=== PATIENT | male | born 1960 | race Caucasian/White ===

== ENCOUNTER 2017-10-19 13:24 | Inpatient (IN) | payer MEDICARE, OTHER, MEDICAID ==
[2017-10-19] MEDS ORDERED: LACTULOSE 30ML CUP PO (15:00)
[2017-10-19] MEDS ORDERED: ONDANSETRON 4 MG INJ IV (15:00)
[2017-10-19] MEDS: SOD CHLORIDE 0.45% 1,000 ML IV (15:18)
[2017-10-19] MEDS: PEG/ELECTROLYTES 4L BTL PO (16:59)
[2017-10-19] MEDS: clonAZEPAM 0.5 MG TAB PO (17:00)
[2017-10-19 18:54] LABS: ADD MAN DIFF? NO
[2017-10-19 18:56] LABS: BASOPHILS % 0.2 % (0.0-2.0); EOSINOPHILS # 0.1 10^3/ul (0.0-0.5); EOSINOPHILS % 1.4 % (0.0-7.0); HEMATOCRIT 39.7 % (42.0-52.0); HEMOGLOBIN 13.7 g/dl (14.0-18.0); LYMPHOCYTES # 0.9 10^3/ul (0.8-2.9); LYMPHOCYTES % 20.6 % (15.0-51.0); MEAN CORPUSCULAR HEMOGLOBIN 31.7 pg (29.0-33.0); MEAN CORPUSCULAR HGB CONC 34.5 g/dl (32.0-37.0); MEAN CORPUSCULAR VOLUME 91.9 fl (82.0-101.0); MEAN PLATELET VOLUME 9.6 fl (7.4-10.4); MONOCYTE # 0.3 10^3/ul (0.3-0.9); MONOCYTES % 6.5 % (0.0-11.0); NEUTROPHIL # 3.1 10^3/ul (1.6-7.5); NEUTROPHILS % 70.8 % (39.0-77.0); PLATELET COUNT 244 10^3/UL (140-415); RED BLOOD COUNT 4.32 10^6/ul (4.70-6.10); RED CELL DISTRIBUTION WIDTH 12.1 % (11.5-14.5)
[2017-10-19 18:56] LABS: WHITE BLOOD COUNT 4.3 10^3/ul (4.8-10.8)
[2017-10-19 19:57] LABS: INR 1.08; PROTIME 14.1 Sec (11.9-14.9); PT RATIO 1.1
[2017-10-19 19:58] LABS: PARTIAL THROMBOPLASTIN TIME 29.7 Sec (25.0-35.0)
[2017-10-19 20:02] LABS: ALANINE AMINOTRANSFERASE 34 IU/L (13-69); ALBUMIN/GLOBULIN RATIO 1.42; ALKALINE PHOSPHATASE 51 IU/L (42-121); ANION GAP 14 (8-16); ASPARTATE AMINO TRANSFERASE 17 IU/L (15-46); BILIRUBIN,INDIRECT 0.3 mg/dl (0-1.1); BILIRUBIN,TOTAL 0.3 mg/dl (0.2-1.3); BLOOD UREA NITROGEN 10 mg/dl (7-20); CALCIUM 9.2 mg/dl (8.4-10.2); CARBON DIOXIDE 30 mmol/L (21-31); CHLORIDE 101 mmol/L (97-110); CREATININE 0.75 mg/dl (0.61-1.24); GLUCOSE 92 mg/dl (70-220); POTASSIUM 3.7 mmol/L (3.5-5.1); SODIUM 141 mmol/L (135-144); TOTAL PROTEIN 6.8 g/dl (6.1-8.1)
[2017-10-19] MEDS: BACLOFEN 10 MG TAB PO (21:45)
[2017-10-19] MEDS: AMITRIPTYLINE 50 MG TAB PO (21:45)
[2017-10-19] MEDS: HYDROCODONE/APAP (10/325) TAB PO (22:09)
[2017-10-20] MEDS: PEG/ELECTROLYTES 4L BTL PO (00:53)
[2017-10-20] MEDS: clonAZEPAM 0.5 MG TAB PO ×7 (01:26→21:53)
[2017-10-20] MEDS: SOD CHLORIDE 0.45% 1,000 ML IV ×3 (03:48→17:43)
[2017-10-20] MEDS: HYDROCODONE/APAP (10/325) TAB PO ×2 (03:48→15:14)
[2017-10-20] MEDS: PANTOPRAZOLE (EC) 40 MG TAB PO (05:20)
[2017-10-20] MEDS: BACLOFEN 10 MG TAB PO ×4 (09:00→23:31)
[2017-10-20] MEDS: TESTOSTERONE 1% GEL 5 GM PACKET TOP (09:00)
[2017-10-20] MEDS: CALCITONIN SALMON 3.7 ML NASAL SPRAY NASAL (09:00)
[2017-10-20] MEDS: GABAPENTIN 100 MG CAP PO (09:00)
[2017-10-20] MEDS: morphine 2 MG INJ IV (09:47)
[2017-10-20] MEDS ORDERED: AMPICILLIN/SULB 3 GM/NS (PMX) 100 ML IVPB (10:00)
[2017-10-20] MEDS: SOD CHLORIDE 0.9% 1,000 ML IV (10:00)
[2017-10-20] MEDS: CHOLECALCIFEROL 2,000 UNIT CAP PO (12:25)
[2017-10-20] MEDS: OXYCODONE/ACETAMINOPHEN (10/325) TAB PO ×3 (12:51→21:29)
[2017-10-20] MEDS ORDERED: NITROGLYCERIN (SL) 0.4 MG TAB SL (13:00)
[2017-10-20 13:53] LABS: ADD MAN DIFF? NO
[2017-10-20 13:55] LABS: WHITE BLOOD COUNT 3.8 10^3/ul (4.8-10.8)
[2017-10-20 13:55] LABS: BASOPHILS % 0.3 % (0.0-2.0); EOSINOPHILS # 0.1 10^3/ul (0.0-0.5); EOSINOPHILS % 1.8 % (0.0-7.0); HEMATOCRIT 38.3 % (42.0-52.0); HEMOGLOBIN 13.2 g/dl (14.0-18.0); LYMPHOCYTES # 0.8 10^3/ul (0.8-2.9); LYMPHOCYTES % 21.5 % (15.0-51.0); MEAN CORPUSCULAR HEMOGLOBIN 31.9 pg (29.0-33.0); MEAN CORPUSCULAR HGB CONC 34.5 g/dl (32.0-37.0); MEAN CORPUSCULAR VOLUME 92.5 fl (82.0-101.0); MEAN PLATELET VOLUME 8.9 fl (7.4-10.4); MONOCYTE # 0.2 10^3/ul (0.3-0.9); NEUTROPHIL # 2.7 10^3/ul (1.6-7.5); NEUTROPHILS % 70.1 % (39.0-77.0); PLATELET COUNT 219 10^3/UL (140-415); RED BLOOD COUNT 4.14 10^6/ul (4.70-6.10); RED CELL DISTRIBUTION WIDTH 12.1 % (11.5-14.5)
[2017-10-20 14:23] LABS: ANION GAP 12 (8-16); BLOOD UREA NITROGEN 8 mg/dl (7-20); CALCIUM 8.7 mg/dl (8.4-10.2); CARBON DIOXIDE 28 mmol/L (21-31); CHLORIDE 105 mmol/L (97-110); CREATININE 0.72 mg/dl (0.61-1.24); GLUCOSE 88 mg/dl (70-220); POTASSIUM 3.7 mmol/L (3.5-5.1); SODIUM 141 mmol/L (135-144)
[2017-10-20] MEDS: TIZANIDINE 2 MG TAB PO (15:09)
[2017-10-20 18:42] LABS: TROPONIN-I < 0.012 ng/ml (0.00-0.12)
[2017-10-20] MEDS: MINERAL OIL 30ML CUP PO (21:22)
[2017-10-20] MEDS: AMITRIPTYLINE 25 MG TAB PO (23:31)
[2017-10-21 01:29] LABS: TROPONIN-I < 0.012 ng/ml (0.00-0.12)
[2017-10-21] MEDS: OXYCODONE/ACETAMINOPHEN (10/325) TAB PO ×4 (01:51→19:54)
[2017-10-21] MEDS: PANTOPRAZOLE (EC) 40 MG TAB PO (06:01)
[2017-10-21] MEDS: SOD CHLORIDE 0.45% 1,000 ML IV ×2 (06:04→20:20)
[2017-10-21 07:55] LABS: ADD MAN DIFF? NO
[2017-10-21 08:01] LABS: WHITE BLOOD COUNT 5.1 10^3/ul (4.8-10.8)
[2017-10-21 08:01] LABS: BASOPHILS % 0.4 % (0.0-2.0); EOSINOPHILS # 0.1 10^3/ul (0.0-0.5); HEMATOCRIT 34.4 % (42.0-52.0); LYMPHOCYTES # 1.3 10^3/ul (0.8-2.9); LYMPHOCYTES % 24.9 % (15.0-51.0); MEAN CORPUSCULAR HEMOGLOBIN 32.1 pg (29.0-33.0); MEAN CORPUSCULAR HGB CONC 34.9 g/dl (32.0-37.0); MEAN PLATELET VOLUME 9.5 fl (7.4-10.4); MONOCYTE # 0.4 10^3/ul (0.3-0.9); MONOCYTES % 7.5 % (0.0-11.0); NEUTROPHIL # 3.3 10^3/ul (1.6-7.5); PLATELET COUNT 204 10^3/UL (140-415); RED BLOOD COUNT 3.74 10^6/ul (4.70-6.10); RED CELL DISTRIBUTION WIDTH 12.3 % (11.5-14.5)
[2017-10-21 08:21] LABS: ANION GAP 12 (8-16); BLOOD UREA NITROGEN 7 mg/dl (7-20); CALCIUM 8.4 mg/dl (8.4-10.2); CARBON DIOXIDE 25 mmol/L (21-31); CHLORIDE 107 mmol/L (97-110); CREATININE 0.72 mg/dl (0.61-1.24); GLUCOSE 69 mg/dl (70-220); POTASSIUM 3.6 mmol/L (3.5-5.1); SODIUM 140 mmol/L (135-144)
[2017-10-21 08:22] LABS: CHOLESTEROL 99 mg/dl (100-200)
[2017-10-21 08:22] LABS: CHOL/HDL RATIO 2.6 RATIO; HDL CHOLESTEROL 38 mg/dl (28-71); LDL CHOLESTEROL,CALCULATED 47 mg/dl; TRIGLYCERIDES 70 mg/dl (0-149)
[2017-10-21 08:31] LABS: TROPONIN-I < 0.012 ng/ml (0.00-0.12)
[2017-10-21] MEDS: TESTOSTERONE 1% GEL 5 GM PACKET TOP (09:00)
[2017-10-21] MEDS: CALCITONIN SALMON 3.7 ML NASAL SPRAY NASAL (09:00)
[2017-10-21] MEDS: MINERAL OIL 30ML CUP PO ×3 (09:19→20:43)
[2017-10-21] MEDS: BACLOFEN 10 MG TAB PO ×3 (09:19→20:43)
[2017-10-21] MEDS: CHOLECALCIFEROL 2,000 UNIT CAP PO (09:21)
[2017-10-21] MEDS: clonAZEPAM 0.5 MG TAB PO ×3 (09:34→20:45)
[2017-10-21] MEDS: REGADENOSON 0.4 MG/5 ML SYG (12:20)
[2017-10-21] MEDS: GABAPENTIN 100 MG CAP PO (20:44)
[2017-10-21] MEDS: AMITRIPTYLINE 25 MG TAB PO (20:44)
[2017-10-22] MEDS: OXYCODONE/ACETAMINOPHEN (10/325) TAB PO ×5 (00:29→23:54)
[2017-10-22] MEDS: clonAZEPAM 0.5 MG TAB PO ×4 (00:57→20:31)
[2017-10-22] MEDS: SOD CHLORIDE 0.45% 1,000 ML IV ×2 (00:57→09:40)
[2017-10-22] MEDS: PANTOPRAZOLE (EC) 40 MG TAB PO (06:00)
[2017-10-22] MEDS: BACLOFEN 10 MG TAB PO ×3 (08:52→21:54)
[2017-10-22] MEDS: MINERAL OIL 30ML CUP PO ×3 (08:52→21:54)
[2017-10-22] MEDS: CHOLECALCIFEROL 2,000 UNIT CAP PO (08:52)
[2017-10-22] MEDS: CALCITONIN SALMON 3.7 ML NASAL SPRAY NASAL (09:00)
[2017-10-22] MEDS: TESTOSTERONE 1% GEL 5 GM PACKET TOP (09:00)
[2017-10-22] MEDS: PEG/ELECTROLYTES 4L BTL PO (15:01)
[2017-10-22] MEDS: D5W-0.45 NACL + KCL 20 MEQ 1,000 ML IV ×3 (15:02→23:17)
[2017-10-22] MEDS: TIZANIDINE 2 MG TAB PO (18:56)
[2017-10-22] MEDS: GABAPENTIN 100 MG CAP PO (23:08)
[2017-10-22] MEDS: AMITRIPTYLINE 25 MG TAB PO (23:08)
[2017-10-23] MEDS: clonAZEPAM 0.5 MG TAB PO ×3 (00:43→17:23)
[2017-10-23] MEDS: DEXTROSE IV ×3 (02:01→17:24)
[2017-10-23] MEDS: MULTIVITAMINS IV ×3 (02:01→17:24)
[2017-10-23] MEDS: POTASSIUM CHLORIDE IV ×3 (02:01→17:24)
[2017-10-23] MEDS: NACL IV ×3 (02:01→17:24)
[2017-10-23] MEDS: PANTOPRAZOLE (EC) 40 MG TAB PO (06:00)
[2017-10-23 06:21] LABS: ADD MAN DIFF? NO
[2017-10-23 06:25] LABS: WHITE BLOOD COUNT 4.4 10^3/ul (4.8-10.8)
[2017-10-23 06:25] LABS: BASOPHILS % 0.5 % (0.0-2.0); EOSINOPHILS # 0.1 10^3/ul (0.0-0.5); EOSINOPHILS % 2.9 % (0.0-7.0); HEMATOCRIT 37.8 % (42.0-52.0); HEMOGLOBIN 12.9 g/dl (14.0-18.0); LYMPHOCYTES # 1.4 10^3/ul (0.8-2.9); LYMPHOCYTES % 31.5 % (15.0-51.0); MEAN CORPUSCULAR HEMOGLOBIN 31.5 pg (29.0-33.0); MEAN CORPUSCULAR HGB CONC 34.1 g/dl (32.0-37.0); MEAN CORPUSCULAR VOLUME 92.4 fl (82.0-101.0); MEAN PLATELET VOLUME 9.7 fl (7.4-10.4); MONOCYTE # 0.4 10^3/ul (0.3-0.9); MONOCYTES % 8.8 % (0.0-11.0); NEUTROPHIL # 2.5 10^3/ul (1.6-7.5); NEUTROPHILS % 56.1 % (39.0-77.0); PLATELET COUNT 210 10^3/UL (140-415); RED BLOOD COUNT 4.09 10^6/ul (4.70-6.10); RED CELL DISTRIBUTION WIDTH 12.4 % (11.5-14.5)
[2017-10-23 06:51] LABS: ANION GAP 11 (8-16); BLOOD UREA NITROGEN 3 mg/dl (7-20); CALCIUM 8.8 mg/dl (8.4-10.2); CARBON DIOXIDE 28 mmol/L (21-31); CHLORIDE 108 mmol/L (97-110); CREATININE 0.78 mg/dl (0.61-1.24); GLUCOSE 107 mg/dl (70-220); POTASSIUM 4.3 mmol/L (3.5-5.1); SODIUM 143 mmol/L (135-144)
[2017-10-23] MEDS: TESTOSTERONE 1% GEL 5 GM PACKET TOP (09:00)
[2017-10-23] MEDS: MINERAL OIL 30ML CUP PO ×4 (09:00→23:28)
[2017-10-23] MEDS: CALCITONIN SALMON 3.7 ML NASAL SPRAY NASAL ×2 (09:00)
[2017-10-23] MEDS: BACLOFEN 10 MG TAB PO ×3 (09:00→23:28)
[2017-10-23] MEDS: PIPER-TAZO 3.375 GM IV (PMX) 50 ML IVPB ×4 (09:00→23:48)
[2017-10-23] MEDS: CHOLECALCIFEROL 2,000 UNIT CAP PO (09:00)
[2017-10-23] MEDS: OXYCODONE/ACETAMINOPHEN (10/325) TAB PO (16:50)
[2017-10-23] MEDS: PEG/ELECTROLYTES 4L BTL PO (16:55)
[2017-10-23] MEDS: TIZANIDINE 2 MG TAB PO (20:10)
[2017-10-23] MEDS: GABAPENTIN 100 MG CAP PO (23:28)
[2017-10-23] MEDS: AMITRIPTYLINE 25 MG TAB PO (23:28)
[2017-10-24] MEDS: MINERAL OIL 30ML CUP PO ×5 (00:23→18:03)
[2017-10-24] MEDS: clonAZEPAM 0.5 MG TAB PO ×3 (00:26→17:02)
[2017-10-24] MEDS: MULTIVITAMINS IV ×2 (01:35→17:11)
[2017-10-24] MEDS: DEXTROSE IV ×2 (01:35→17:11)
[2017-10-24] MEDS: POTASSIUM CHLORIDE IV ×2 (01:35→17:11)
[2017-10-24] MEDS: NACL IV ×2 (01:35→17:11)
[2017-10-24] MEDS: OXYCODONE/ACETAMINOPHEN (10/325) TAB PO ×4 (02:57→21:54)
[2017-10-24] MEDS: PIPER-TAZO 3.375 GM IV (PMX) 50 ML IVPB ×4 (07:01→23:52)
[2017-10-24] MEDS: PANTOPRAZOLE (EC) 40 MG TAB PO (08:00)
[2017-10-24] MEDS ORDERED: IOHEXOL 300MG/ML 150 ML BTL (08:20)
[2017-10-24] MEDS: BACLOFEN 10 MG TAB PO ×3 (09:00→21:38)
[2017-10-24] MEDS: TESTOSTERONE 1% GEL 5 GM PACKET TOP (09:00)
[2017-10-24] MEDS: CHOLECALCIFEROL 2,000 UNIT CAP PO (11:52)
[2017-10-24] MEDS: METOCLOPRAMIDE 10 MG TAB PO (12:00)
[2017-10-24 14:21] LABS: ADD MAN DIFF? NO
[2017-10-24 14:23] LABS: BASOPHILS % 0.3 % (0.0-2.0); EOSINOPHILS # 0.1 10^3/ul (0.0-0.5); EOSINOPHILS % 2.1 % (0.0-7.0); HEMATOCRIT 40.5 % (42.0-52.0); HEMOGLOBIN 13.6 g/dl (14.0-18.0); LYMPHOCYTES # 0.9 10^3/ul (0.8-2.9); LYMPHOCYTES % 22.1 % (15.0-51.0); MEAN CORPUSCULAR HEMOGLOBIN 31.6 pg (29.0-33.0); MEAN CORPUSCULAR HGB CONC 33.6 g/dl (32.0-37.0); MEAN CORPUSCULAR VOLUME 94.2 fl (82.0-101.0); MEAN PLATELET VOLUME 9.6 fl (7.4-10.4); MONOCYTE # 0.2 10^3/ul (0.3-0.9); MONOCYTES % 5.7 % (0.0-11.0); NEUTROPHIL # 2.7 10^3/ul (1.6-7.5); NEUTROPHILS % 69.5 % (39.0-77.0); PLATELET COUNT 223 10^3/UL (140-415); RED CELL DISTRIBUTION WIDTH 12.9 % (11.5-14.5)
[2017-10-24 14:23] LABS: WHITE BLOOD COUNT 3.8 10^3/ul (4.8-10.8)
[2017-10-24 14:46] LABS: ANION GAP 11 (8-16); BLOOD UREA NITROGEN < 2 mg/dl (7-20); CALCIUM 9.2 mg/dl (8.4-10.2); CARBON DIOXIDE 28 mmol/L (21-31); CHLORIDE 108 mmol/L (97-110); CREATININE 0.86 mg/dl (0.61-1.24); GLUCOSE 111 mg/dl (70-220); POTASSIUM 3.7 mmol/L (3.5-5.1); SODIUM 143 mmol/L (135-144)
[2017-10-24] MEDS: GABAPENTIN 100 MG CAP PO (21:38)
[2017-10-24] MEDS: AMITRIPTYLINE 25 MG TAB PO (21:38)
[2017-10-25] MEDS: clonAZEPAM 0.5 MG TAB PO ×4 (02:11→19:53)
[2017-10-25] MEDS: OXYCODONE/ACETAMINOPHEN (10/325) TAB PO ×4 (02:11→19:54)
[2017-10-25] MEDS: MINERAL OIL 30ML CUP PO ×5 (02:12→18:57)
[2017-10-25] MEDS: PANTOPRAZOLE (EC) 40 MG TAB PO (06:00)
[2017-10-25] MEDS: POTASSIUM CHLORIDE IV (06:07)
[2017-10-25] MEDS: NACL IV (06:07)
[2017-10-25] MEDS: PIPER-TAZO 3.375 GM IV (PMX) 50 ML IVPB ×4 (06:07→23:48)
[2017-10-25] MEDS: DEXTROSE IV (06:07)
[2017-10-25] MEDS: MULTIVITAMINS IV (06:07)
[2017-10-25] MEDS: TESTOSTERONE 1% GEL 5 GM PACKET TOP (09:00)
[2017-10-25] MEDS: CHOLECALCIFEROL 2,000 UNIT CAP PO (10:17)
[2017-10-25] MEDS: BACLOFEN 10 MG TAB PO ×3 (10:17→21:19)
[2017-10-25] MEDS: CALCITONIN SALMON 3.7 ML NASAL SPRAY NASAL (12:39)
[2017-10-25] MEDS ORDERED: TPN 1,000 ML IV (16:00)
[2017-10-25] MEDS: ACCU-CHEK XX ×2 (17:00→21:00)
[2017-10-25] MEDS: D5W-0.45 NACL + KCL 20 MEQ 1,000 ML IV (17:30)
[2017-10-25] MEDS: MINERAL OIL 133 ML ENEMA PR (21:00)
[2017-10-25] MEDS: GABAPENTIN 100 MG CAP PO (21:00)
[2017-10-25] MEDS: AMITRIPTYLINE 25 MG TAB PO (21:19)
[2017-10-25] MEDS: FAT EMULSION 20% 250 ML IV (21:27)
[2017-10-25] MEDS: TPN 1,000 ML IV (21:28)
[2017-10-26] MEDS: ACCU-CHEK XX ×6 (01:00→21:00)
[2017-10-26] MEDS: MINERAL OIL 30ML CUP PO ×5 (01:25→17:58)
[2017-10-26] MEDS: PIPER-TAZO 3.375 GM IV (PMX) 50 ML IVPB ×3 (05:30→17:58)
[2017-10-26] MEDS: TPN 1,000 ML IV ×2 (06:30→11:14)
[2017-10-26] MEDS: PANTOPRAZOLE (EC) 40 MG TAB PO (07:28)
[2017-10-26] MEDS: CALCITONIN SALMON 3.7 ML NASAL SPRAY NASAL (09:00)
[2017-10-26] MEDS: clonAZEPAM 0.5 MG TAB PO ×4 (09:01→23:00)
[2017-10-26] MEDS: CHOLECALCIFEROL 2,000 UNIT CAP PO (09:02)
[2017-10-26] MEDS: BACLOFEN 10 MG TAB PO ×3 (09:02→22:12)
[2017-10-26] MEDS: MINERAL OIL 133 ML ENEMA PR ×3 (09:02→22:57)
[2017-10-26] MEDS: OXYCODONE/ACETAMINOPHEN (10/325) TAB PO ×3 (09:02→18:39)
[2017-10-26 10:54] LABS: PHOSPHORUS 3.6 mg/dl (2.5-4.9)
[2017-10-26 10:54] LABS: MAGNESIUM 1.8 mg/dl (1.7-2.5); TRIGLYCERIDES 54 mg/dl (0-149)
[2017-10-26 10:55] LABS: ALANINE AMINOTRANSFERASE 37 IU/L (13-69); ALBUMIN 3.3 g/dl (3.3-4.9); ALBUMIN/GLOBULIN RATIO 1.32; ALKALINE PHOSPHATASE 35 IU/L (42-121); ANION GAP 14 (8-16); ASPARTATE AMINO TRANSFERASE 19 IU/L (15-46); BILIRUBIN,INDIRECT 0.4 mg/dl (0-1.1); BILIRUBIN,TOTAL 0.4 mg/dl (0.2-1.3); BLOOD UREA NITROGEN 9 mg/dl (7-20); CALCIUM 9.1 mg/dl (8.4-10.2); CARBON DIOXIDE 25 mmol/L (21-31); CHLORIDE 106 mmol/L (97-110); CREATININE 0.79 mg/dl (0.61-1.24); GLUCOSE 132 mg/dl (70-220); SODIUM 141 mmol/L (135-144); TOTAL PROTEIN 5.8 g/dl (6.1-8.1)
[2017-10-26 11:01] LABS: PREALBUMIN 17.7 mg/dl (17.6-36.0)
[2017-10-26] MEDS ORDERED: HYDROmorphONE 0.5 MG/0.5 ML SYG IV (12:30)
[2017-10-26] MEDS: PEG/ELECTROLYTES 4L BTL PO (14:50)
[2017-10-26] MEDS: FAT EMULSION 20% 250 ML IV (16:00)
[2017-10-26] MEDS: D5W-0.45 NACL + KCL 20 MEQ 1,000 ML IV ×2 (16:00→22:21)
[2017-10-26] MEDS: TESTOSTERONE 1% GEL 5 GM PACKET TOP (16:29)
[2017-10-26] MEDS: AMITRIPTYLINE 25 MG TAB PO (22:12)
[2017-10-26] MEDS: GABAPENTIN 100 MG CAP PO (22:13)
[2017-10-27] MEDS: PIPER-TAZO 3.375 GM IV (PMX) 50 ML IVPB ×5 (00:26→23:51)
[2017-10-27] MEDS: MINERAL OIL 30ML CUP PO ×3 (00:27→11:53)
[2017-10-27] MEDS: ACCU-CHEK XX ×5 (01:43→18:55)
[2017-10-27] MEDS: TPN 1,000 ML IV ×3 (01:44→20:00)
[2017-10-27] MEDS: OXYCODONE/ACETAMINOPHEN (10/325) TAB PO ×3 (03:07→20:40)
[2017-10-27] MEDS: PANTOPRAZOLE (EC) 40 MG TAB PO (05:08)
[2017-10-27] MEDS: TESTOSTERONE 1% GEL 5 GM PACKET TOP ×2 (09:00→11:51)
[2017-10-27] MEDS: BACLOFEN 10 MG TAB PO ×3 (09:00→23:50)
[2017-10-27] MEDS: CALCITONIN SALMON 3.7 ML NASAL SPRAY NASAL (09:00)
[2017-10-27] MEDS: CHOLECALCIFEROL 2,000 UNIT CAP PO (09:00)
[2017-10-27] MEDS: MINERAL OIL 133 ML ENEMA PR ×2 (10:36→11:54)
[2017-10-27 10:49] LABS: ADD MAN DIFF? NO
[2017-10-27 10:54] LABS: WHITE BLOOD COUNT 5.5 10^3/ul (4.8-10.8)
[2017-10-27 10:54] LABS: BASOPHILS % 0.2 % (0.0-2.0); EOSINOPHILS # 0.2 10^3/ul (0.0-0.5); HEMATOCRIT 38.2 % (42.0-52.0); HEMOGLOBIN 12.8 g/dl (14.0-18.0); LYMPHOCYTES # 0.9 10^3/ul (0.8-2.9); LYMPHOCYTES % 16.1 % (15.0-51.0); MEAN CORPUSCULAR HEMOGLOBIN 31.7 pg (29.0-33.0); MEAN CORPUSCULAR HGB CONC 33.5 g/dl (32.0-37.0); MEAN CORPUSCULAR VOLUME 94.6 fl (82.0-101.0); MEAN PLATELET VOLUME 9.8 fl (7.4-10.4); MONOCYTE # 0.4 10^3/ul (0.3-0.9); MONOCYTES % 7.8 % (0.0-11.0); NEUTROPHILS % 71.7 % (39.0-77.0); PLATELET COUNT 191 10^3/UL (140-415); RED BLOOD COUNT 4.04 10^6/ul (4.70-6.10); RED CELL DISTRIBUTION WIDTH 12.8 % (11.5-14.5)
[2017-10-27 11:21] LABS: PROTIME 14.4 Sec (11.9-14.9); PT RATIO 1.1
[2017-10-27 11:22] LABS: PARTIAL THROMBOPLASTIN TIME 28.5 Sec (25.0-35.0)
[2017-10-27 11:25] LABS: ANION GAP 11 (8-16); BLOOD UREA NITROGEN 13 mg/dl (7-20); CALCIUM 8.9 mg/dl (8.4-10.2); CARBON DIOXIDE 28 mmol/L (21-31); CHLORIDE 106 mmol/L (97-110); CREATININE 0.84 mg/dl (0.61-1.24); GLUCOSE 106 mg/dl (70-220); PHOSPHORUS 3.1 mg/dl (2.5-4.9); POTASSIUM 4.2 mmol/L (3.5-5.1); SODIUM 141 mmol/L (135-144)
[2017-10-27] MEDS: DIAZEPAM 5 MG/ML SYG IV (11:51)
[2017-10-27] MEDS: clonAZEPAM 0.5 MG TAB PO ×2 (15:56→20:38)
[2017-10-27] MEDS: FAT EMULSION 20% 250 ML IV (16:13)
[2017-10-27] MEDS: AMITRIPTYLINE 25 MG TAB PO (23:50)
[2017-10-27] MEDS: GABAPENTIN 100 MG CAP PO (23:50)
[2017-10-28] MEDS: OXYCODONE/ACETAMINOPHEN (10/325) TAB PO ×3 (03:09→20:26)
[2017-10-28] MEDS: TIZANIDINE 2 MG TAB PO (03:09)
[2017-10-28] MEDS: PANTOPRAZOLE (EC) 40 MG TAB PO ×2 (05:44→10:11)
[2017-10-28] MEDS: PIPER-TAZO 3.375 GM IV (PMX) 50 ML IVPB ×4 (05:44→23:56)
[2017-10-28] MEDS: D5W-0.45 NACL + KCL 20 MEQ 1,000 ML IV (05:50)
[2017-10-28] MEDS: TPN 1,000 ML IV ×2 (05:50→20:27)
[2017-10-28] MEDS: ACCU-CHEK XX ×4 (06:00→17:39)
[2017-10-28] MEDS: BACLOFEN 10 MG TAB PO ×4 (09:00→22:45)
[2017-10-28] MEDS: CHOLECALCIFEROL 2,000 UNIT CAP PO (10:11)
[2017-10-28] MEDS: TESTOSTERONE 1% GEL 5 GM PACKET TOP (10:12)
[2017-10-28] MEDS: CALCITONIN SALMON 3.7 ML NASAL SPRAY NASAL (10:15)
[2017-10-28 11:02] LABS: ANION GAP 14 (8-16); BLOOD UREA NITROGEN 13 mg/dl (7-20); CALCIUM 9.5 mg/dl (8.4-10.2); CARBON DIOXIDE 25 mmol/L (21-31); CHLORIDE 108 mmol/L (97-110); CREATININE 0.75 mg/dl (0.61-1.24); GLUCOSE 100 mg/dl (70-220); MAGNESIUM 1.9 mg/dl (1.7-2.5); POTASSIUM 4.2 mmol/L (3.5-5.1); SODIUM 143 mmol/L (135-144)
[2017-10-28 11:03] LABS: PHOSPHORUS 3.1 mg/dl (2.5-4.9)
[2017-10-28] MEDS: clonAZEPAM 0.5 MG TAB PO ×2 (11:23→20:26)
[2017-10-28] MEDS: FAT EMULSION 20% 250 ML IV (17:39)
[2017-10-28] MEDS: MINERAL OIL 30ML CUP PO (17:39)
[2017-10-28] MEDS: AMITRIPTYLINE 25 MG TAB PO (22:45)
[2017-10-28] MEDS: GABAPENTIN 100 MG CAP PO ×2 (23:57)
[2017-10-29] MEDS: ACCU-CHEK XX ×5 (00:03→23:39)
[2017-10-29] MEDS: MINERAL OIL 30ML CUP PO ×5 (05:06→23:34)
[2017-10-29] MEDS: PANTOPRAZOLE (EC) 40 MG TAB PO (05:06)
[2017-10-29] MEDS: PIPER-TAZO 3.375 GM IV (PMX) 50 ML IVPB ×2 (05:07→12:03)
[2017-10-29] MEDS: D5W-0.45 NACL + KCL 20 MEQ 1,000 ML IV ×2 (05:09→16:00)
[2017-10-29] MEDS: OXYCODONE/ACETAMINOPHEN (10/325) TAB PO ×4 (05:27→20:48)
[2017-10-29] MEDS: clonAZEPAM 0.5 MG TAB PO ×4 (05:42→20:53)
[2017-10-29] MEDS: BACLOFEN 10 MG TAB PO ×3 (09:00→20:48)
[2017-10-29] MEDS: CALCITONIN SALMON 3.7 ML NASAL SPRAY NASAL ×2 (09:00→09:31)
[2017-10-29] MEDS: CHOLECALCIFEROL 2,000 UNIT CAP PO (09:31)
[2017-10-29] MEDS: TESTOSTERONE 1% GEL 5 GM PACKET TOP (09:31)
[2017-10-29] MEDS: TPN 1,000 ML IV ×2 (10:06→22:07)
[2017-10-29] MEDS ORDERED: PIPER-TAZO 3.375 GM IV (PMX) 50 ML IV (13:30)
[2017-10-29 14:32] LABS: ADD MAN DIFF? NO
[2017-10-29 14:34] LABS: WHITE BLOOD COUNT 5.7 10^3/ul (4.8-10.8)
[2017-10-29 14:34] LABS: BASOPHILS % 0.4 % (0.0-2.0); EOSINOPHILS # 0.3 10^3/ul (0.0-0.5); EOSINOPHILS % 4.4 % (0.0-7.0); HEMATOCRIT 38.3 % (42.0-52.0); HEMOGLOBIN 13.1 g/dl (14.0-18.0); LYMPHOCYTES # 0.8 10^3/ul (0.8-2.9); LYMPHOCYTES % 13.3 % (15.0-51.0); MEAN CORPUSCULAR HEMOGLOBIN 32.3 pg (29.0-33.0); MEAN CORPUSCULAR HGB CONC 34.2 g/dl (32.0-37.0); MEAN CORPUSCULAR VOLUME 94.3 fl (82.0-101.0); MEAN PLATELET VOLUME 10.4 fl (7.4-10.4); MONOCYTE # 0.3 10^3/ul (0.3-0.9); MONOCYTES % 5.8 % (0.0-11.0); NEUTROPHIL # 4.3 10^3/ul (1.6-7.5); NEUTROPHILS % 75.9 % (39.0-77.0); PLATELET COUNT 196 10^3/UL (140-415); RED BLOOD COUNT 4.06 10^6/ul (4.70-6.10); RED CELL DISTRIBUTION WIDTH 12.6 % (11.5-14.5)
[2017-10-29 14:51] LABS: ANION GAP 13 (8-16); BLOOD UREA NITROGEN 13 mg/dl (7-20); CALCIUM 9.3 mg/dl (8.4-10.2); CARBON DIOXIDE 23 mmol/L (21-31); CHLORIDE 109 mmol/L (97-110); CREATININE 0.74 mg/dl (0.61-1.24); GLUCOSE 124 mg/dl (70-220); POTASSIUM 3.4 mmol/L (3.5-5.1); SODIUM 142 mmol/L (135-144)
[2017-10-29] MEDS: FAT EMULSION 20% 250 ML IV (17:08)
[2017-10-29] MEDS: PEG/ELECTROLYTES 4L BTL PO (18:03)
[2017-10-29] MEDS: AMITRIPTYLINE 25 MG TAB PO (20:49)
[2017-10-29] MEDS: GABAPENTIN 100 MG CAP PO (20:49)
[2017-10-30] MEDS ORDERED: PEG/ELECTROLYTES 4L BTL PO
[2017-10-30] MEDS: clonAZEPAM 0.5 MG TAB PO (01:10)
[2017-10-30] MEDS: OXYCODONE/ACETAMINOPHEN (10/325) TAB PO ×2 (01:10→09:58)
[2017-10-30] MEDS: D5W-0.45 NACL + KCL 20 MEQ 1,000 ML IV ×2 (03:08→20:22)
[2017-10-30] MEDS: PANTOPRAZOLE (EC) 40 MG TAB PO (05:49)
[2017-10-30] MEDS: ACCU-CHEK XX ×3 (06:19→18:00)
[2017-10-30] MEDS: TESTOSTERONE 1% GEL 5 GM PACKET TOP (09:57)
[2017-10-30] MEDS: CHOLECALCIFEROL 2,000 UNIT CAP PO (09:57)
[2017-10-30] MEDS: BACLOFEN 10 MG TAB PO ×3 (09:57→21:00)
[2017-10-30] MEDS: DIAZEPAM 5 MG/ML SYG IV ×2 (09:58→21:54)
[2017-10-30] MEDS: CALCITONIN SALMON 3.7 ML NASAL SPRAY NASAL (09:59)
[2017-10-30] MEDS: TPN 1,000 ML IV ×2 (10:49→21:42)
[2017-10-30] MEDS ORDERED: PIPER-TAZO 3.375 GM IV (PMX) 50 ML IV (14:00)
[2017-10-30] MEDS ORDERED: LIDOCAINE 2% (SDV) 5 ML INJ (15:26)
[2017-10-30] MEDS ORDERED: GLYCOPYRROLATE 0.4 MG INJ (15:26)
[2017-10-30] MEDS ORDERED: SUCCINYLCHOLINE CHLORIDE 100 MG/5 ML SYG IV (15:26)
[2017-10-30] MEDS ORDERED: ROCURONIUM 50 MG INJ (15:26)
[2017-10-30] MEDS ORDERED: PROPOFOL 20 ML (15:26)
[2017-10-30] MEDS ORDERED: NEOSTIGMINE 3 MG/3 ML SYRINGE (15:26)
[2017-10-30] MEDS ORDERED: MIDAZOLAM 1 MG/ML 2 ML INJ (15:30)
[2017-10-30] MEDS ORDERED: D5W-0.45 NACL + KCL 20 MEQ 1,000 ML IV (17:02)
[2017-10-30] MEDS ORDERED: ONDANSETRON 4 MG INJ IV ×2 (17:30→18:00)
[2017-10-30] MEDS ORDERED: ACETAMINOPHEN 1000MG/100ML IV 100 ML IVPB (17:30)
[2017-10-30] MEDS ORDERED: ONDANSETRON 4 MG INJ (17:50)
[2017-10-30] MEDS ORDERED: OXYCODONE/ACETAMINOPHEN (5/325) TAB PO ×2 (18:00)
[2017-10-30] MEDS ORDERED: EPHEDrine SULFATE 50 MG/5 ML SYG IV (18:00)
[2017-10-30] MEDS ORDERED: HYDROmorphONE (0.2 MG/ML) 10ML SYG IV ×3 (18:00)
[2017-10-30] MEDS ORDERED: hydrALAzine 20 MG INJ IV (18:00)
[2017-10-30] MEDS ORDERED: METOCLOPRAMIDE 10 MG INJ IV (18:00)
[2017-10-30] MEDS ORDERED: MEPERIDINE 25 MG INJ IV (18:00)
[2017-10-30] MEDS ORDERED: MIDAZOLAM 1 MG/ML 2 ML INJ IV (18:00)
[2017-10-30] MEDS ORDERED: LABETALOL HCL 20MG INJ IV (18:00)
[2017-10-30] MEDS ORDERED: FENTAnyl 50 MCG/ML VIAL IV ×3 (18:00)
[2017-10-30] MEDS ORDERED: FENTAnyl 50 MCG/ML VIAL (18:15)
[2017-10-30] MEDS: morphine 1 MG/ML 30 ML (PCA) IV (18:56)
[2017-10-30] MEDS: AMITRIPTYLINE 25 MG TAB PO (21:00)
[2017-10-30] MEDS: GABAPENTIN 100 MG CAP PO (21:00)
[2017-10-30] MEDS: FAT EMULSION 20% 250 ML IV ×2 (23:18→23:19)
[2017-10-31] MEDS: morphine 1 MG/ML 30 ML (PCA) IV ×3 (00:38→13:58)
[2017-10-31] MEDS: ACCU-CHEK XX ×4 (00:48→18:00)
[2017-10-31] MEDS: PANTOPRAZOLE (EC) 40 MG TAB PO (05:52)
[2017-10-31] MEDS: DIAZEPAM 5 MG/ML SYG IV (06:21)
[2017-10-31] MEDS ORDERED: VITAMIN A & D 5 GM OINT PACKET TOP (06:33)
[2017-10-31] MEDS: TESTOSTERONE 1% GEL 5 GM PACKET TOP ×2 (09:00)
[2017-10-31] MEDS: CHOLECALCIFEROL 2,000 UNIT CAP PO (09:00)
[2017-10-31] MEDS: BACLOFEN 10 MG TAB PO ×4 (09:00→23:16)
[2017-10-31] MEDS: CALCITONIN SALMON 3.7 ML NASAL SPRAY NASAL (09:00)
[2017-10-31 09:35] LABS: ADD MAN DIFF? NO
[2017-10-31 09:40] LABS: BASOPHILS % 0.2 % (0.0-2.0); EOSINOPHILS # 0.2 10^3/ul (0.0-0.5); EOSINOPHILS % 1.7 % (0.0-7.0); HEMATOCRIT 41.4 % (42.0-52.0); HEMOGLOBIN 13.8 g/dl (14.0-18.0); LYMPHOCYTES % 10.5 % (15.0-51.0); MEAN CORPUSCULAR HEMOGLOBIN 31.6 pg (29.0-33.0); MEAN CORPUSCULAR HGB CONC 33.3 g/dl (32.0-37.0); MEAN CORPUSCULAR VOLUME 94.7 fl (82.0-101.0); MEAN PLATELET VOLUME 10.5 fl (7.4-10.4); MONOCYTE # 0.9 10^3/ul (0.3-0.9); MONOCYTES % 9.1 % (0.0-11.0); NEUTROPHIL # 7.3 10^3/ul (1.6-7.5); NEUTROPHILS % 78.1 % (39.0-77.0); PLATELET COUNT 216 10^3/UL (140-415); RED BLOOD COUNT 4.37 10^6/ul (4.70-6.10); RED CELL DISTRIBUTION WIDTH 12.6 % (11.5-14.5)
[2017-10-31 09:40] LABS: WHITE BLOOD COUNT 9.4 10^3/ul (4.8-10.8)
[2017-10-31 10:01] LABS: ANION GAP 12 (8-16); BLOOD UREA NITROGEN 13 mg/dl (7-20); CALCIUM 9.2 mg/dl (8.4-10.2); CARBON DIOXIDE 30 mmol/L (21-31); CHLORIDE 102 mmol/L (97-110); CREATININE 0.64 mg/dl (0.61-1.24); GLUCOSE 102 mg/dl (70-220); MAGNESIUM 1.8 mg/dl (1.7-2.5); PHOSPHORUS 3.3 mg/dl (2.5-4.9); SODIUM 140 mmol/L (135-144)
[2017-10-31 10:26] LABS: INR 1.04; PROTIME 13.7 Sec (11.9-14.9); PT RATIO 1.1
[2017-10-31 10:27] LABS: PARTIAL THROMBOPLASTIN TIME 28.9 Sec (25.0-35.0)
[2017-10-31] MEDS: TPN 1,000 ML IV ×2 (11:21→23:14)
[2017-10-31] MEDS: KETOROLAC 30 MG INJ IV ×3 (12:08→23:30)
[2017-10-31] MEDS: clonAZEPAM 0.5 MG TAB PO ×2 (14:14→20:45)
[2017-10-31] MEDS: D5W-0.45 NACL + KCL 20 MEQ 1,000 ML IV (16:18)
[2017-10-31] MEDS: FAT EMULSION 20% 250 ML IV (16:19)
[2017-10-31] MEDS: AMITRIPTYLINE 25 MG TAB PO (20:45)
[2017-10-31] MEDS: GABAPENTIN 100 MG CAP PO (21:00)
[2017-11-01] MEDS: ACCU-CHEK XX ×4 (00:45→18:00)
[2017-11-01] MEDS: morphine 1 MG/ML 30 ML (PCA) IV ×3 (01:31→21:43)
[2017-11-01] MEDS: clonAZEPAM 0.5 MG TAB PO ×2 (04:24→20:47)
[2017-11-01] MEDS: PANTOPRAZOLE (EC) 40 MG TAB PO (06:14)
[2017-11-01] MEDS: KETOROLAC 30 MG INJ IV ×4 (06:14→22:49)
[2017-11-01] MEDS: CALCITONIN SALMON 3.7 ML NASAL SPRAY NASAL (09:00)
[2017-11-01] MEDS: TESTOSTERONE 1% GEL 5 GM PACKET TOP (09:00)
[2017-11-01] MEDS: BACLOFEN 10 MG TAB PO ×3 (09:00→21:00)
[2017-11-01 11:31] LABS: ADD MAN DIFF? NO
[2017-11-01 11:35] LABS: WHITE BLOOD COUNT 7.1 10^3/ul (4.8-10.8)
[2017-11-01 11:35] LABS: BASOPHILS % 0.6 % (0.0-2.0); EOSINOPHILS # 0.3 10^3/ul (0.0-0.5); EOSINOPHILS % 3.5 % (0.0-7.0); HEMATOCRIT 39.7 % (42.0-52.0); HEMOGLOBIN 12.9 g/dl (14.0-18.0); LYMPHOCYTES # 1.3 10^3/ul (0.8-2.9); LYMPHOCYTES % 18.1 % (15.0-51.0); MEAN CORPUSCULAR HEMOGLOBIN 31.7 pg (29.0-33.0); MEAN CORPUSCULAR HGB CONC 32.5 g/dl (32.0-37.0); MEAN CORPUSCULAR VOLUME 97.5 fl (82.0-101.0); MEAN PLATELET VOLUME 10.4 fl (7.4-10.4); MONOCYTE # 0.9 10^3/ul (0.3-0.9); MONOCYTES % 12.9 % (0.0-11.0); NEUTROPHIL # 4.6 10^3/ul (1.6-7.5); NEUTROPHILS % 64.8 % (39.0-77.0); PLATELET COUNT 215 10^3/UL (140-415); RED BLOOD COUNT 4.07 10^6/ul (4.70-6.10); RED CELL DISTRIBUTION WIDTH 12.7 % (11.5-14.5)
[2017-11-01 11:57] LABS: INR 1.08; PROTIME 14.1 Sec (11.9-14.9); PT RATIO 1.1
[2017-11-01 11:58] LABS: PARTIAL THROMBOPLASTIN TIME 31.8 Sec (25.0-35.0)
[2017-11-01 12:03] LABS: ANION GAP 12 (8-16); BLOOD UREA NITROGEN 15 mg/dl (7-20); CALCIUM 9.3 mg/dl (8.4-10.2); CARBON DIOXIDE 28 mmol/L (21-31); CHLORIDE 103 mmol/L (97-110); CREATININE 0.73 mg/dl (0.61-1.24); GLUCOSE 94 mg/dl (70-220); MAGNESIUM 2.1 mg/dl (1.7-2.5); PHOSPHORUS 3.8 mg/dl (2.5-4.9); POTASSIUM 4.2 mmol/L (3.5-5.1); SODIUM 139 mmol/L (135-144)
[2017-11-01] MEDS: TPN 1,000 ML IV (12:28)
[2017-11-01] MEDS: CHOLECALCIFEROL 2,000 UNIT CAP PO (12:33)
[2017-11-01] MEDS: D5W-0.45 NACL + KCL 20 MEQ 1,000 ML IV (16:00)
[2017-11-01] MEDS: FAT EMULSION 20% 250 ML IV (16:01)
[2017-11-01] MEDS: AMITRIPTYLINE 25 MG TAB PO (20:46)
[2017-11-01] MEDS: GABAPENTIN 100 MG CAP PO (21:00)
[2017-11-01] MEDS: PIPER-TAZO 3.375 GM IV (PMX) 50 ML IVPB (22:47)
[2017-11-02] MEDS: TPN 1,000 ML IV ×3 (01:03→17:14)
[2017-11-02] MEDS: ACCU-CHEK XX ×4 (06:00→17:56)
[2017-11-02] MEDS: PIPER-TAZO 3.375 GM IV (PMX) 50 ML IVPB ×3 (06:12→21:44)
[2017-11-02] MEDS: PANTOPRAZOLE 40 MG INJ IV (06:12)
[2017-11-02] MEDS: KETOROLAC 30 MG INJ IV ×3 (06:12→17:41)
[2017-11-02] MEDS: BACLOFEN 10 MG TAB PO ×3 (09:46→20:23)
[2017-11-02] MEDS: CHOLECALCIFEROL 2,000 UNIT CAP PO (09:46)
[2017-11-02] MEDS: CALCITONIN SALMON 3.7 ML NASAL SPRAY NASAL (09:46)
[2017-11-02 11:22] LABS: ADD MAN DIFF? NO
[2017-11-02] MEDS: clonAZEPAM 0.5 MG TAB PO ×3 (11:30→20:33)
[2017-11-02] MEDS: TESTOSTERONE 1% GEL 5 GM PACKET TOP (11:35)
[2017-11-02 11:36] LABS: BASOPHILS % 0.6 % (0.0-2.0); EOSINOPHILS # 0.3 10^3/ul (0.0-0.5); EOSINOPHILS % 5.9 % (0.0-7.0); HEMATOCRIT 37.2 % (42.0-52.0); HEMOGLOBIN 12.3 g/dl (14.0-18.0); LYMPHOCYTES # 0.9 10^3/ul (0.8-2.9); LYMPHOCYTES % 18.7 % (15.0-51.0); MEAN CORPUSCULAR HEMOGLOBIN 32.1 pg (29.0-33.0); MEAN CORPUSCULAR HGB CONC 33.1 g/dl (32.0-37.0); MEAN CORPUSCULAR VOLUME 97.1 fl (82.0-101.0); MEAN PLATELET VOLUME 10.5 fl (7.4-10.4); MONOCYTE # 0.6 10^3/ul (0.3-0.9); MONOCYTES % 12.2 % (0.0-11.0); NEUTROPHIL # 3.1 10^3/ul (1.6-7.5); NEUTROPHILS % 62.4 % (39.0-77.0); PLATELET COUNT 183 10^3/UL (140-415); RED BLOOD COUNT 3.83 10^6/ul (4.70-6.10); RED CELL DISTRIBUTION WIDTH 12.4 % (11.5-14.5)
[2017-11-02 11:36] LABS: WHITE BLOOD COUNT 4.9 10^3/ul (4.8-10.8)
[2017-11-02 11:50] LABS: INR 1.02; PROTIME 13.5 Sec (11.9-14.9); PT RATIO 1.1
[2017-11-02 11:54] LABS: TRIGLYCERIDES 70 mg/dl (0-149)
[2017-11-02 11:55] LABS: ANION GAP 12 (8-16); BLOOD UREA NITROGEN 17 mg/dl (7-20); CALCIUM 9.1 mg/dl (8.4-10.2); CARBON DIOXIDE 29 mmol/L (21-31); CHLORIDE 103 mmol/L (97-110); CREATININE 0.74 mg/dl (0.61-1.24); GLUCOSE 96 mg/dl (70-220); PHOSPHORUS 4.5 mg/dl (2.5-4.9); POTASSIUM 4.2 mmol/L (3.5-5.1); SODIUM 140 mmol/L (135-144)
[2017-11-02 12:00] LABS: PREALBUMIN 15.3 mg/dl (17.6-36.0)
[2017-11-02] MEDS: D5W-0.45 NACL + KCL 20 MEQ 1,000 ML IV ×2 (12:12→17:41)
[2017-11-02 12:30] LABS: PARTIAL THROMBOPLASTIN TIME 32.4 Sec (25.0-35.0)
[2017-11-02] MEDS: morphine 1 MG/ML 30 ML (PCA) IV (12:55)
[2017-11-02] MEDS: FAT EMULSION 20% 250 ML IV (17:14)
[2017-11-02] MEDS: AMITRIPTYLINE 25 MG TAB PO (20:23)
[2017-11-02] MEDS: GABAPENTIN 100 MG CAP PO (21:45)
[2017-11-03] MEDS: KETOROLAC 30 MG INJ IV ×2 (00:51→05:41)
[2017-11-03] MEDS: clonAZEPAM 0.5 MG TAB PO ×5 (00:52→22:16)
[2017-11-03] MEDS: TPN 1,000 ML IV ×3 (05:40→18:53)
[2017-11-03] MEDS: PIPER-TAZO 3.375 GM IV (PMX) 50 ML IVPB ×3 (05:42→22:17)
[2017-11-03] MEDS: ACCU-CHEK XX ×4 (05:42→17:20)
[2017-11-03] MEDS: PANTOPRAZOLE 40 MG INJ IV (05:42)
[2017-11-03] MEDS: TESTOSTERONE 1% GEL 5 GM PACKET TOP ×2 (09:00→15:16)
[2017-11-03] MEDS: D5W-0.45 NACL + KCL 20 MEQ 1,000 ML IV ×2 (10:26→20:09)
[2017-11-03] MEDS: BACLOFEN 10 MG TAB PO ×4 (10:32→22:16)
[2017-11-03] MEDS: CHOLECALCIFEROL 2,000 UNIT CAP PO (10:32)
[2017-11-03] MEDS: CALCITONIN SALMON 3.7 ML NASAL SPRAY NASAL (10:33)
[2017-11-03 12:05] LABS: ADD MAN DIFF? NO
[2017-11-03 12:16] LABS: WHITE BLOOD COUNT 4.2 10^3/ul (4.8-10.8)
[2017-11-03 12:16] LABS: EOSINOPHILS # 0.3 10^3/ul (0.0-0.5); EOSINOPHILS % 6.2 % (0.0-7.0); HEMATOCRIT 34.4 % (42.0-52.0); HEMOGLOBIN 11.4 g/dl (14.0-18.0); LYMPHOCYTES # 0.6 10^3/ul (0.8-2.9); LYMPHOCYTES % 15.1 % (15.0-51.0); MEAN CORPUSCULAR HEMOGLOBIN 31.8 pg (29.0-33.0); MEAN CORPUSCULAR HGB CONC 33.1 g/dl (32.0-37.0); MEAN CORPUSCULAR VOLUME 96.1 fl (82.0-101.0); MEAN PLATELET VOLUME 10.5 fl (7.4-10.4); MONOCYTE # 0.4 10^3/ul (0.3-0.9); MONOCYTES % 9.1 % (0.0-11.0); NEUTROPHIL # 2.9 10^3/ul (1.6-7.5); NEUTROPHILS % 68.4 % (39.0-77.0); PLATELET COUNT 198 10^3/UL (140-415); RED BLOOD COUNT 3.58 10^6/ul (4.70-6.10); RED CELL DISTRIBUTION WIDTH 12.2 % (11.5-14.5)
[2017-11-03 12:28] LABS: ANION GAP 10 (8-16); BLOOD UREA NITROGEN 16 mg/dl (7-20); CALCIUM 8.7 mg/dl (8.4-10.2); CARBON DIOXIDE 27 mmol/L (21-31); CHLORIDE 108 mmol/L (97-110); CREATININE 0.77 mg/dl (0.61-1.24); GLUCOSE 87 mg/dl (70-220); PHOSPHORUS 3.1 mg/dl (2.5-4.9); SODIUM 141 mmol/L (135-144)
[2017-11-03] MEDS: morphine 1 MG/ML 30 ML (PCA) IV ×2 (13:31→22:07)
[2017-11-03] MEDS: FAT EMULSION 20% 250 ML IV (15:35)
[2017-11-03] MEDS: AMITRIPTYLINE 25 MG TAB PO (22:16)
[2017-11-03] MEDS: GABAPENTIN 100 MG CAP PO ×2 (22:23→23:34)
[2017-11-04] MEDS: ACETAMINOPHEN 325 MG TAB PO (02:30)
[2017-11-04] MEDS: clonAZEPAM 0.5 MG TAB PO ×4 (02:36→22:32)
[2017-11-04] MEDS: TPN 1,000 ML IV ×3 (03:00→11:00)
[2017-11-04] MEDS: ACCU-CHEK XX ×5 (06:00→23:48)
[2017-11-04] MEDS: PIPER-TAZO 3.375 GM IV (PMX) 50 ML IVPB ×3 (07:09→21:39)
[2017-11-04] MEDS: PANTOPRAZOLE 40 MG INJ IV (07:09)
[2017-11-04] MEDS: BACLOFEN 10 MG TAB PO ×3 (09:29→20:51)
[2017-11-04] MEDS: CHOLECALCIFEROL 2,000 UNIT CAP PO (09:30)
[2017-11-04] MEDS: CALCITONIN SALMON 3.7 ML NASAL SPRAY NASAL (09:39)
[2017-11-04] MEDS ORDERED: morphine 4 MG/ML VIAL IV (10:30)
[2017-11-04 10:57] LABS: ADD MAN DIFF? NO
[2017-11-04] MEDS: TESTOSTERONE 1% GEL 5 GM PACKET TOP (11:00)
[2017-11-04 11:16] LABS: WHITE BLOOD COUNT 6.4 10^3/ul (4.8-10.8)
[2017-11-04 11:16] LABS: BASOPHILS % 0.5 % (0.0-2.0); EOSINOPHILS # 0.3 10^3/ul (0.0-0.5); HEMATOCRIT 35.6 % (42.0-52.0); HEMOGLOBIN 11.7 g/dl (14.0-18.0); LYMPHOCYTES # 0.6 10^3/ul (0.8-2.9); LYMPHOCYTES % 9.8 % (15.0-51.0); MEAN CORPUSCULAR HEMOGLOBIN 31.5 pg (29.0-33.0); MEAN CORPUSCULAR HGB CONC 32.9 g/dl (32.0-37.0); MEAN CORPUSCULAR VOLUME 95.7 fl (82.0-101.0); MEAN PLATELET VOLUME 10.4 fl (7.4-10.4); MONOCYTE # 0.3 10^3/ul (0.3-0.9); NEUTROPHIL # 5.2 10^3/ul (1.6-7.5); NEUTROPHILS % 80.4 % (39.0-77.0); PLATELET COUNT 214 10^3/UL (140-415); RED BLOOD COUNT 3.72 10^6/ul (4.70-6.10); RED CELL DISTRIBUTION WIDTH 12.1 % (11.5-14.5)
[2017-11-04 11:17] LABS: ANION GAP 13 (8-16); BLOOD UREA NITROGEN 15 mg/dl (7-20); CALCIUM 9.1 mg/dl (8.4-10.2); CARBON DIOXIDE 25 mmol/L (21-31); CHLORIDE 107 mmol/L (97-110); CREATININE 0.78 mg/dl (0.61-1.24); GLUCOSE 151 mg/dl (70-220); POTASSIUM 3.9 mmol/L (3.5-5.1); SODIUM 141 mmol/L (135-144)
[2017-11-04] MEDS: OXYCODONE/ACETAMINOPHEN (10/325) TAB PO ×2 (15:30→22:15)
[2017-11-04] MEDS: HYDROmorphONE 0.5 MG/0.5 ML SYG IV (18:12)
[2017-11-04] MEDS: AMITRIPTYLINE 25 MG TAB PO (20:51)
[2017-11-04] MEDS: GABAPENTIN 100 MG CAP PO (23:00)
[2017-11-05] MEDS: ACCU-CHEK XX ×2 (06:36→12:44)
[2017-11-05] MEDS: OXYCODONE/ACETAMINOPHEN (10/325) TAB PO ×4 (06:36→21:57)
[2017-11-05] MEDS: PANTOPRAZOLE 40 MG INJ IV (06:43)
[2017-11-05] MEDS: PIPER-TAZO 3.375 GM IV (PMX) 50 ML IVPB ×3 (06:43→21:49)
[2017-11-05] MEDS: clonAZEPAM 0.5 MG TAB PO ×4 (06:44→21:56)
[2017-11-05 08:54] LABS: ADD MAN DIFF? NO
[2017-11-05 08:56] LABS: WHITE BLOOD COUNT 4.9 10^3/ul (4.8-10.8)
[2017-11-05 08:56] LABS: BASOPHILS % 0.8 % (0.0-2.0); EOSINOPHILS # 0.3 10^3/ul (0.0-0.5); EOSINOPHILS % 5.5 % (0.0-7.0); HEMATOCRIT 34.7 % (42.0-52.0); HEMOGLOBIN 11.7 g/dl (14.0-18.0); LYMPHOCYTES # 0.7 10^3/ul (0.8-2.9); LYMPHOCYTES % 14.8 % (15.0-51.0); MEAN CORPUSCULAR HEMOGLOBIN 31.6 pg (29.0-33.0); MEAN CORPUSCULAR HGB CONC 33.7 g/dl (32.0-37.0); MEAN CORPUSCULAR VOLUME 93.8 fl (82.0-101.0); MEAN PLATELET VOLUME 10.3 fl (7.4-10.4); MONOCYTE # 0.4 10^3/ul (0.3-0.9); MONOCYTES % 8.5 % (0.0-11.0); NEUTROPHIL # 3.5 10^3/ul (1.6-7.5); NEUTROPHILS % 70.2 % (39.0-77.0); PLATELET COUNT 204 10^3/UL (140-415); RED CELL DISTRIBUTION WIDTH 12.5 % (11.5-14.5)
[2017-11-05] MEDS: BACLOFEN 10 MG TAB PO ×3 (09:05→21:49)
[2017-11-05] MEDS: CHOLECALCIFEROL 2,000 UNIT CAP PO (09:05)
[2017-11-05] MEDS: CALCITONIN SALMON 3.7 ML NASAL SPRAY NASAL (09:05)
[2017-11-05] MEDS: TESTOSTERONE 1% GEL 5 GM PACKET TOP (09:06)
[2017-11-05] MEDS: TPN 1,000 ML IV (09:19)
[2017-11-05 09:28] LABS: ANION GAP 14 (8-16); BLOOD UREA NITROGEN 15 mg/dl (7-20); CALCIUM 9.2 mg/dl (8.4-10.2); CARBON DIOXIDE 26 mmol/L (21-31); CHLORIDE 106 mmol/L (97-110); CREATININE 0.86 mg/dl (0.61-1.24); GLUCOSE 102 mg/dl (70-220); POTASSIUM 4.3 mmol/L (3.5-5.1); SODIUM 142 mmol/L (135-144)
[2017-11-05] MEDS: AMITRIPTYLINE 25 MG TAB PO (21:48)
[2017-11-06] MEDS: PANTOPRAZOLE 40 MG INJ IV (05:41)
[2017-11-06] MEDS: clonAZEPAM 0.5 MG TAB PO ×3 (05:41→20:56)
[2017-11-06] MEDS: OXYCODONE/ACETAMINOPHEN (10/325) TAB PO ×4 (05:42→20:56)
[2017-11-06] MEDS: PIPER-TAZO 3.375 GM IV (PMX) 50 ML IVPB ×3 (05:42→21:55)
[2017-11-06] MEDS: CHOLECALCIFEROL 2,000 UNIT CAP PO (09:15)
[2017-11-06] MEDS: BACLOFEN 10 MG TAB PO ×3 (09:15→21:55)
[2017-11-06] MEDS: TESTOSTERONE 1% GEL 5 GM PACKET TOP (09:16)
[2017-11-06] MEDS: CALCITONIN SALMON 3.7 ML NASAL SPRAY NASAL (09:16)
[2017-11-06 10:36] LABS: ADD MAN DIFF? NO
[2017-11-06 10:40] LABS: WHITE BLOOD COUNT 5.3 10^3/ul (4.8-10.8)
[2017-11-06 10:40] LABS: BASOPHILS % 0.8 % (0.0-2.0); EOSINOPHILS # 0.3 10^3/ul (0.0-0.5); EOSINOPHILS % 5.1 % (0.0-7.0); HEMATOCRIT 39.3 % (42.0-52.0); HEMOGLOBIN 12.7 g/dl (14.0-18.0); LYMPHOCYTES # 0.9 10^3/ul (0.8-2.9); LYMPHOCYTES % 16.4 % (15.0-51.0); MEAN CORPUSCULAR HGB CONC 32.3 g/dl (32.0-37.0); MEAN CORPUSCULAR VOLUME 95.9 fl (82.0-101.0); MEAN PLATELET VOLUME 10.3 fl (7.4-10.4); MONOCYTE # 0.2 10^3/ul (0.3-0.9); MONOCYTES % 4.6 % (0.0-11.0); NEUTROPHIL # 3.8 10^3/ul (1.6-7.5); NEUTROPHILS % 72.9 % (39.0-77.0); PLATELET COUNT 226 10^3/UL (140-415); RED CELL DISTRIBUTION WIDTH 12.5 % (11.5-14.5)
[2017-11-06 11:00] LABS: ANION GAP 15 (8-16); BLOOD UREA NITROGEN 14 mg/dl (7-20); CALCIUM 9.2 mg/dl (8.4-10.2); CARBON DIOXIDE 25 mmol/L (21-31); CHLORIDE 105 mmol/L (97-110); CREATININE 0.88 mg/dl (0.61-1.24); GLUCOSE 195 mg/dl (70-220); POTASSIUM 3.4 mmol/L (3.5-5.1); SODIUM 142 mmol/L (135-144)
[2017-11-06] MEDS: SOD CHLORIDE 0.9% 500 ML IV (14:27)
[2017-11-06] MEDS: GABAPENTIN 100 MG CAP PO (21:55)
[2017-11-06] MEDS: AMITRIPTYLINE 25 MG TAB PO (21:55)
[2017-11-07] MEDS: clonAZEPAM 0.5 MG TAB PO ×4 (00:41→23:34)
[2017-11-07] MEDS: OXYCODONE/ACETAMINOPHEN (10/325) TAB PO ×4 (00:42→22:38)
[2017-11-07] MEDS: POTASSIUM CHLORIDE 20 MEQ in DEXTROSE 5% 100 ML IVPB (02:39)
[2017-11-07] MEDS: HYDROmorphONE 2 MG TAB PO (04:24)
[2017-11-07] MEDS: PANTOPRAZOLE (EC) 40 MG TAB PO (06:23)
[2017-11-07] MEDS: PIPER-TAZO 3.375 GM IV (PMX) 50 ML IVPB ×2 (06:24→14:00)
[2017-11-07] MEDS: CHOLECALCIFEROL 2,000 UNIT CAP PO (08:46)
[2017-11-07] MEDS: CALCITONIN SALMON 3.7 ML NASAL SPRAY NASAL (08:46)
[2017-11-07] MEDS: BACLOFEN 10 MG TAB PO ×3 (08:46→21:26)
[2017-11-07] MEDS: TESTOSTERONE 1% GEL 5 GM PACKET TOP (08:48)
[2017-11-07 10:58] LABS: ADD MAN DIFF? NO
[2017-11-07 11:01] LABS: WHITE BLOOD COUNT 6.2 10^3/ul (4.8-10.8)
[2017-11-07 11:01] LABS: BASOPHILS % 0.6 % (0.0-2.0); EOSINOPHILS # 0.2 10^3/ul (0.0-0.5); EOSINOPHILS % 3.2 % (0.0-7.0); HEMOGLOBIN 12.4 g/dl (14.0-18.0); LYMPHOCYTES # 0.9 10^3/ul (0.8-2.9); LYMPHOCYTES % 13.8 % (15.0-51.0); MEAN CORPUSCULAR HEMOGLOBIN 31.9 pg (29.0-33.0); MEAN CORPUSCULAR HGB CONC 33.5 g/dl (32.0-37.0); MEAN CORPUSCULAR VOLUME 95.1 fl (82.0-101.0); MEAN PLATELET VOLUME 10.3 fl (7.4-10.4); MONOCYTE # 0.3 10^3/ul (0.3-0.9); NEUTROPHIL # 4.8 10^3/ul (1.6-7.5); NEUTROPHILS % 77.1 % (39.0-77.0); PLATELET COUNT 247 10^3/UL (140-415); RED BLOOD COUNT 3.89 10^6/ul (4.70-6.10); RED CELL DISTRIBUTION WIDTH 12.6 % (11.5-14.5)
[2017-11-07 11:19] LABS: ANION GAP 15 (8-16); BLOOD UREA NITROGEN 14 mg/dl (7-20); CALCIUM 9.3 mg/dl (8.4-10.2); CARBON DIOXIDE 27 mmol/L (21-31); CHLORIDE 105 mmol/L (97-110); CREATININE 0.85 mg/dl (0.61-1.24); GLUCOSE 140 mg/dl (70-220); POTASSIUM 3.9 mmol/L (3.5-5.1); SODIUM 143 mmol/L (135-144)
[2017-11-07] MEDS: AMITRIPTYLINE 25 MG TAB PO (21:26)
[2017-11-07] MEDS: MINERAL OIL 30ML CUP PO (23:34)
[2017-11-08] MEDS: GABAPENTIN 100 MG CAP PO (00:48)
[2017-11-08] MEDS: clonAZEPAM 0.5 MG TAB PO ×4 (04:17→22:34)
[2017-11-08] MEDS: OXYCODONE/ACETAMINOPHEN (10/325) TAB PO ×4 (04:50→22:34)
[2017-11-08] MEDS: MINERAL OIL 30ML CUP PO ×3 (06:00→21:07)
[2017-11-08] MEDS: TESTOSTERONE 1% GEL 5 GM PACKET TOP (12:00)
[2017-11-08] MEDS: PANTOPRAZOLE (EC) 40 MG TAB PO (12:30)
[2017-11-08] MEDS: CALCITONIN SALMON 3.7 ML NASAL SPRAY NASAL (12:30)
[2017-11-08] MEDS: CHOLECALCIFEROL 2,000 UNIT CAP PO (12:30)
[2017-11-08] MEDS: BACLOFEN 10 MG TAB PO ×3 (12:30→21:07)
[2017-11-08] MEDS: AMITRIPTYLINE 25 MG TAB PO (21:07)
[2017-11-09] MEDS: GABAPENTIN 100 MG CAP PO ×3 (00:08→23:20)
[2017-11-09] MEDS: MINERAL OIL 30ML CUP PO ×4 (06:00→23:20)
[2017-11-09] MEDS: PANTOPRAZOLE (EC) 40 MG TAB PO (06:00)
[2017-11-09] MEDS: CALCITONIN SALMON 3.7 ML NASAL SPRAY NASAL (09:00)
[2017-11-09] MEDS: BACLOFEN 10 MG TAB PO ×4 (09:00→21:25)
[2017-11-09] MEDS: clonAZEPAM 0.5 MG TAB PO ×3 (09:16→18:56)
[2017-11-09] MEDS: OXYCODONE/ACETAMINOPHEN (10/325) TAB PO ×3 (09:20→18:57)
[2017-11-09] MEDS: TESTOSTERONE 1% GEL 5 GM PACKET TOP (09:21)
[2017-11-09] MEDS: CHOLECALCIFEROL 2,000 UNIT CAP PO (09:26)
[2017-11-09] MEDS: AMITRIPTYLINE 25 MG TAB PO (21:25)
[2017-11-10] MEDS: clonAZEPAM 0.5 MG TAB PO ×4 (01:51→20:19)
[2017-11-10] MEDS: OXYCODONE/ACETAMINOPHEN (10/325) TAB PO ×4 (01:51→20:21)
[2017-11-10] MEDS: MINERAL OIL 30ML CUP PO ×3 (06:00→21:49)
[2017-11-10] MEDS: PANTOPRAZOLE (EC) 40 MG TAB PO (06:00)
[2017-11-10] MEDS: BACLOFEN 10 MG TAB PO ×3 (09:40→21:47)
[2017-11-10] MEDS: CHOLECALCIFEROL 2,000 UNIT CAP PO (09:40)
[2017-11-10] MEDS: TESTOSTERONE 1% GEL 5 GM PACKET TOP (09:41)
[2017-11-10] MEDS: CALCITONIN SALMON 3.7 ML NASAL SPRAY NASAL (09:41)
[2017-11-10 10:54] LABS: ADD MAN DIFF? NO
[2017-11-10 10:58] LABS: WHITE BLOOD COUNT 5.5 10^3/ul (4.8-10.8)
[2017-11-10 10:58] LABS: BASOPHILS % 0.7 % (0.0-2.0); EOSINOPHILS # 0.2 10^3/ul (0.0-0.5); EOSINOPHILS % 4.4 % (0.0-7.0); HEMOGLOBIN 12.9 g/dl (14.0-18.0); LYMPHOCYTES % 18.5 % (15.0-51.0); MEAN CORPUSCULAR HEMOGLOBIN 31.7 pg (29.0-33.0); MEAN CORPUSCULAR HGB CONC 33.1 g/dl (32.0-37.0); MEAN CORPUSCULAR VOLUME 95.8 fl (82.0-101.0); MEAN PLATELET VOLUME 9.8 fl (7.4-10.4); MONOCYTE # 0.4 10^3/ul (0.3-0.9); MONOCYTES % 7.9 % (0.0-11.0); NEUTROPHIL # 3.7 10^3/ul (1.6-7.5); NEUTROPHILS % 68.1 % (39.0-77.0); PLATELET COUNT 325 10^3/UL (140-415); RED BLOOD COUNT 4.07 10^6/ul (4.70-6.10); RED CELL DISTRIBUTION WIDTH 12.8 % (11.5-14.5)
[2017-11-10 11:22] LABS: ANION GAP 15 (8-16); BLOOD UREA NITROGEN 21 mg/dl (7-20); CALCIUM 9.5 mg/dl (8.4-10.2); CARBON DIOXIDE 27 mmol/L (21-31); CHLORIDE 102 mmol/L (97-110); CREATININE 0.79 mg/dl (0.61-1.24); GLUCOSE 109 mg/dl (70-220); POTASSIUM 3.8 mmol/L (3.5-5.1); SODIUM 140 mmol/L (135-144)
[2017-11-10] MEDS: GABAPENTIN 100 MG CAP PO (21:47)
[2017-11-10] MEDS: AMITRIPTYLINE 25 MG TAB PO (21:47)
[2017-11-11] MEDS: clonAZEPAM 0.5 MG TAB PO ×4 (01:09→20:20)
[2017-11-11] MEDS: OXYCODONE/ACETAMINOPHEN (10/325) TAB PO ×4 (01:14→20:19)
[2017-11-11] MEDS: MINERAL OIL 30ML CUP PO ×3 (06:00→21:45)
[2017-11-11] MEDS: PANTOPRAZOLE (EC) 40 MG TAB PO (06:00)
[2017-11-11] MEDS: BACLOFEN 10 MG TAB PO ×3 (09:56→21:46)
[2017-11-11] MEDS: CHOLECALCIFEROL 2,000 UNIT CAP PO (09:56)
[2017-11-11] MEDS: CALCITONIN SALMON 3.7 ML NASAL SPRAY NASAL (09:57)
[2017-11-11] MEDS: TESTOSTERONE 1% GEL 5 GM PACKET TOP (09:57)
[2017-11-11] MEDS: GABAPENTIN 100 MG CAP PO (21:46)
[2017-11-11] MEDS: AMITRIPTYLINE 25 MG TAB PO (21:46)
[2017-11-12] MEDS: clonAZEPAM 0.5 MG TAB PO ×5 (02:06→23:23)
[2017-11-12] MEDS: OXYCODONE/ACETAMINOPHEN (10/325) TAB PO ×5 (02:08→23:23)
[2017-11-12] MEDS: PANTOPRAZOLE (EC) 40 MG TAB PO (05:54)
[2017-11-12] MEDS: MINERAL OIL 30ML CUP PO ×3 (05:54→21:12)
[2017-11-12] MEDS: TESTOSTERONE 1% GEL 5 GM PACKET TOP (09:37)
[2017-11-12] MEDS: BACLOFEN 10 MG TAB PO ×3 (09:38→21:12)
[2017-11-12] MEDS: CALCITONIN SALMON 3.7 ML NASAL SPRAY NASAL (09:38)
[2017-11-12] MEDS: CHOLECALCIFEROL 2,000 UNIT CAP PO (09:38)
[2017-11-12] MEDS: AMITRIPTYLINE 25 MG TAB PO (21:12)
[2017-11-12] MEDS: GABAPENTIN 100 MG CAP PO (23:23)
[2017-11-13] MEDS: OXYCODONE/ACETAMINOPHEN (10/325) TAB PO ×5 (03:28→23:53)
[2017-11-13] MEDS: clonAZEPAM 0.5 MG TAB PO ×5 (03:30→23:53)
[2017-11-13] MEDS: PANTOPRAZOLE (EC) 40 MG TAB PO (06:00)
[2017-11-13] MEDS: MINERAL OIL 30ML CUP PO ×2 (09:52→20:54)
[2017-11-13] MEDS: BACLOFEN 10 MG TAB PO ×3 (09:52→20:53)
[2017-11-13] MEDS: CHOLECALCIFEROL 2,000 UNIT CAP PO (09:52)
[2017-11-13] MEDS: TESTOSTERONE 1% GEL 5 GM PACKET TOP (09:53)
[2017-11-13] MEDS: CALCITONIN SALMON 3.7 ML NASAL SPRAY NASAL (09:53)
[2017-11-13] MEDS: AMITRIPTYLINE 25 MG TAB PO (20:53)
[2017-11-14] MEDS: GABAPENTIN 100 MG CAP PO ×2 (01:02→20:53)
[2017-11-14] MEDS: OXYCODONE/ACETAMINOPHEN (10/325) TAB PO ×5 (04:00→22:31)
[2017-11-14] MEDS: clonAZEPAM 0.5 MG TAB PO ×5 (04:00→22:31)
[2017-11-14] MEDS: CHOLECALCIFEROL 2,000 UNIT CAP PO (08:53)
[2017-11-14] MEDS: BACLOFEN 10 MG TAB PO ×3 (08:53→20:53)
[2017-11-14] MEDS: MINERAL OIL 30ML CUP PO ×2 (08:54→20:53)
[2017-11-14] MEDS: PANTOPRAZOLE (EC) 40 MG TAB PO (08:54)
[2017-11-14] MEDS: TESTOSTERONE 1% GEL 5 GM PACKET TOP (08:54)
[2017-11-14] MEDS: CALCITONIN SALMON 3.7 ML NASAL SPRAY NASAL (08:58)
[2017-11-14] MEDS: HYDROmorphONE 2 MG TAB PO (10:45)
[2017-11-14 11:58] LABS: ADD MAN DIFF? NO
[2017-11-14 12:13] LABS: WHITE BLOOD COUNT 5.7 10^3/ul (4.8-10.8)
[2017-11-14 12:13] LABS: BASOPHIL # 0.1 10^3/ul (0.0-0.1); BASOPHILS % 0.9 % (0.0-2.0); EOSINOPHILS # 0.2 10^3/ul (0.0-0.5); EOSINOPHILS % 3.2 % (0.0-7.0); HEMATOCRIT 38.8 % (42.0-52.0); HEMOGLOBIN 12.7 g/dl (14.0-18.0); LYMPHOCYTES # 1.1 10^3/ul (0.8-2.9); LYMPHOCYTES % 19.8 % (15.0-51.0); MEAN CORPUSCULAR HEMOGLOBIN 31.4 pg (29.0-33.0); MEAN CORPUSCULAR HGB CONC 32.7 g/dl (32.0-37.0); MONOCYTE # 0.5 10^3/ul (0.3-0.9); MONOCYTES % 8.5 % (0.0-11.0); NEUTROPHIL # 3.8 10^3/ul (1.6-7.5); NEUTROPHILS % 67.4 % (39.0-77.0); PLATELET COUNT 352 10^3/UL (140-415); RED BLOOD COUNT 4.04 10^6/ul (4.70-6.10); RED CELL DISTRIBUTION WIDTH 13.1 % (11.5-14.5)
[2017-11-14 12:30] LABS: ANION GAP 14 (8-16); BLOOD UREA NITROGEN 16 mg/dl (7-20); CALCIUM 9.7 mg/dl (8.4-10.2); CARBON DIOXIDE 30 mmol/L (21-31); CHLORIDE 104 mmol/L (97-110); CREATININE 0.79 mg/dl (0.61-1.24); GLUCOSE 99 mg/dl (70-220); POTASSIUM 4.4 mmol/L (3.5-5.1); SODIUM 144 mmol/L (135-144)
[2017-11-14] MEDS: AMITRIPTYLINE 25 MG TAB PO (20:53)
[2017-11-15] MEDS: clonAZEPAM 0.5 MG TAB PO ×4 (09:14→21:47)
[2017-11-15] MEDS: MINERAL OIL 30ML CUP PO ×2 (09:14→21:40)
[2017-11-15] MEDS: PANTOPRAZOLE (EC) 40 MG TAB PO (09:14)
[2017-11-15] MEDS: CHOLECALCIFEROL 2,000 UNIT CAP PO (09:15)
[2017-11-15] MEDS: TESTOSTERONE 1% GEL 5 GM PACKET TOP (09:15)
[2017-11-15] MEDS: OXYCODONE/ACETAMINOPHEN (10/325) TAB PO ×4 (09:15→21:47)
[2017-11-15] MEDS: BACLOFEN 10 MG TAB PO ×3 (09:15→21:40)
[2017-11-15] MEDS: CALCITONIN SALMON 3.7 ML NASAL SPRAY NASAL (09:16)
[2017-11-15 16:26] LABS: ADD MAN DIFF? NO
[2017-11-15 16:29] LABS: BASOPHILS % 0.4 % (0.0-2.0); EOSINOPHILS # 0.2 10^3/ul (0.0-0.5); EOSINOPHILS % 2.5 % (0.0-7.0); HEMOGLOBIN 12.9 g/dl (14.0-18.0); LYMPHOCYTES % 14.8 % (15.0-51.0); MEAN CORPUSCULAR HEMOGLOBIN 31.5 pg (29.0-33.0); MEAN CORPUSCULAR HGB CONC 33.1 g/dl (32.0-37.0); MEAN CORPUSCULAR VOLUME 95.1 fl (82.0-101.0); MEAN PLATELET VOLUME 9.7 fl (7.4-10.4); MONOCYTE # 0.4 10^3/ul (0.3-0.9); MONOCYTES % 5.8 % (0.0-11.0); NEUTROPHIL # 5.2 10^3/ul (1.6-7.5); NEUTROPHILS % 76.2 % (39.0-77.0); PLATELET COUNT 342 10^3/UL (140-415); RED CELL DISTRIBUTION WIDTH 13.2 % (11.5-14.5)
[2017-11-15 16:29] LABS: WHITE BLOOD COUNT 6.8 10^3/ul (4.8-10.8)
[2017-11-15 16:57] LABS: ANION GAP 17 (8-16); BLOOD UREA NITROGEN 20 mg/dl (7-20); CALCIUM 9.6 mg/dl (8.4-10.2); CARBON DIOXIDE 27 mmol/L (21-31); CHLORIDE 104 mmol/L (97-110); CREATININE 0.82 mg/dl (0.61-1.24); GLUCOSE 131 mg/dl (70-220); POTASSIUM 3.9 mmol/L (3.5-5.1); SODIUM 144 mmol/L (135-144)
[2017-11-15] MEDS: GABAPENTIN 100 MG CAP PO (21:40)
[2017-11-15] MEDS: AMITRIPTYLINE 25 MG TAB PO (21:40)
[2017-11-16] MEDS: OXYCODONE/ACETAMINOPHEN (10/325) TAB PO ×4 (02:16→21:12)
[2017-11-16] MEDS: clonAZEPAM 0.5 MG TAB PO ×4 (02:17→21:12)
[2017-11-16] MEDS: PANTOPRAZOLE (EC) 40 MG TAB PO ×2 (06:00→06:34)
[2017-11-16] MEDS: TESTOSTERONE 1% GEL 5 GM PACKET TOP (08:52)
[2017-11-16] MEDS: CHOLECALCIFEROL 2,000 UNIT CAP PO (08:52)
[2017-11-16] MEDS: MINERAL OIL 30ML CUP PO ×2 (08:52→20:46)
[2017-11-16] MEDS: BACLOFEN 10 MG TAB PO ×4 (08:53→20:46)
[2017-11-16] MEDS: CALCITONIN SALMON 3.7 ML NASAL SPRAY NASAL (08:54)
[2017-11-16] MEDS: GABAPENTIN 100 MG CAP PO ×2 (11:35→23:13)
[2017-11-16] MEDS: AMITRIPTYLINE 25 MG TAB PO (20:46)
[2017-11-17] MEDS: OXYCODONE/ACETAMINOPHEN (10/325) TAB PO ×4 (02:14→18:49)
[2017-11-17] MEDS: clonAZEPAM 0.5 MG TAB PO ×4 (02:20→18:48)
[2017-11-17] MEDS: PANTOPRAZOLE (EC) 40 MG TAB PO (06:00)
[2017-11-17] MEDS: GABAPENTIN 100 MG CAP PO ×2 (09:00→23:25)
[2017-11-17] MEDS: MINERAL OIL 30ML CUP PO ×2 (09:10→21:00)
[2017-11-17] MEDS: CALCITONIN SALMON 3.7 ML NASAL SPRAY NASAL (09:11)
[2017-11-17] MEDS: TESTOSTERONE 1% GEL 5 GM PACKET TOP (09:11)
[2017-11-17] MEDS: BACLOFEN 10 MG TAB PO ×3 (09:11→21:25)
[2017-11-17] MEDS: CHOLECALCIFEROL 2,000 UNIT CAP PO (09:11)
[2017-11-17 14:57] LABS: ADD MAN DIFF? NO
[2017-11-17 14:59] LABS: BASOPHILS % 0.3 % (0.0-2.0); EOSINOPHILS # 0.1 10^3/ul (0.0-0.5); EOSINOPHILS % 2.4 % (0.0-7.0); HEMATOCRIT 42.1 % (42.0-52.0); HEMOGLOBIN 13.7 g/dl (14.0-18.0); LYMPHOCYTES % 16.8 % (15.0-51.0); MEAN CORPUSCULAR HEMOGLOBIN 31.6 pg (29.0-33.0); MEAN CORPUSCULAR HGB CONC 32.5 g/dl (32.0-37.0); MEAN PLATELET VOLUME 9.9 fl (7.4-10.4); MONOCYTE # 0.4 10^3/ul (0.3-0.9); MONOCYTES % 7.1 % (0.0-11.0); NEUTROPHIL # 4.3 10^3/ul (1.6-7.5); NEUTROPHILS % 73.2 % (39.0-77.0); PLATELET COUNT 327 10^3/UL (140-415); RED BLOOD COUNT 4.34 10^6/ul (4.70-6.10); RED CELL DISTRIBUTION WIDTH 13.1 % (11.5-14.5)
[2017-11-17 14:59] LABS: WHITE BLOOD COUNT 5.9 10^3/ul (4.8-10.8)
[2017-11-17 15:55] LABS: BLOOD UREA NITROGEN 18 mg/dl (7-20); CALCIUM 9.3 mg/dl (8.4-10.2); CARBON DIOXIDE 26 mmol/L (21-31); CHLORIDE 102 mmol/L (97-110); CREATININE 0.77 mg/dl (0.61-1.24); GLUCOSE 120 mg/dl (70-220); POTASSIUM 3.9 mmol/L (3.5-5.1)
[2017-11-17 17:30] LABS: SODIUM 143 mmol/L (135-144)
[2017-11-17 17:32] LABS: ANION GAP 19 (8-16)
[2017-11-17] MEDS: AMITRIPTYLINE 25 MG TAB PO (21:25)
[2017-11-18] MEDS: clonAZEPAM 0.5 MG TAB PO ×4 (00:54→18:32)
[2017-11-18] MEDS: OXYCODONE/ACETAMINOPHEN (10/325) TAB PO ×4 (00:59→18:32)
[2017-11-18] MEDS: PANTOPRAZOLE (EC) 40 MG TAB PO (06:00)
[2017-11-18] MEDS: GABAPENTIN 100 MG CAP PO ×3 (09:00→21:20)
[2017-11-18] MEDS: TESTOSTERONE 1% GEL 5 GM PACKET TOP (09:27)
[2017-11-18] MEDS: BACLOFEN 10 MG TAB PO ×3 (09:27→21:19)
[2017-11-18] MEDS: CHOLECALCIFEROL 2,000 UNIT CAP PO (09:27)
[2017-11-18] MEDS: MINERAL OIL 30ML CUP PO ×2 (09:28→21:19)
[2017-11-18] MEDS: CALCITONIN SALMON 3.7 ML NASAL SPRAY NASAL (09:29)
[2017-11-18] MEDS: AMITRIPTYLINE 25 MG TAB PO (21:19)
[2017-11-19] MEDS: clonAZEPAM 0.5 MG TAB PO ×4 (00:46→21:43)
[2017-11-19] MEDS: OXYCODONE/ACETAMINOPHEN (10/325) TAB PO ×4 (00:46→21:45)
[2017-11-19] MEDS: PANTOPRAZOLE (EC) 40 MG TAB PO (06:00)
[2017-11-19] MEDS: BACLOFEN 10 MG TAB PO ×3 (09:09→21:43)
[2017-11-19] MEDS: GABAPENTIN 100 MG CAP PO ×2 (09:09→21:43)
[2017-11-19] MEDS: CHOLECALCIFEROL 2,000 UNIT CAP PO (09:09)
[2017-11-19] MEDS: MINERAL OIL 30ML CUP PO ×2 (09:10→21:46)
[2017-11-19] MEDS: CALCITONIN SALMON 3.7 ML NASAL SPRAY NASAL (09:12)
[2017-11-19 09:56] LABS: ADD MAN DIFF? NO
[2017-11-19 10:00] LABS: WHITE BLOOD COUNT 6.6 10^3/ul (4.8-10.8)
[2017-11-19 10:00] LABS: BASOPHILS % 0.5 % (0.0-2.0); EOSINOPHILS # 0.2 10^3/ul (0.0-0.5); EOSINOPHILS % 2.9 % (0.0-7.0); HEMATOCRIT 38.2 % (42.0-52.0); LYMPHOCYTES # 1.2 10^3/ul (0.8-2.9); LYMPHOCYTES % 17.7 % (15.0-51.0); MEAN CORPUSCULAR HEMOGLOBIN 32.2 pg (29.0-33.0); MEAN CORPUSCULAR VOLUME 94.6 fl (82.0-101.0); MEAN PLATELET VOLUME 9.6 fl (7.4-10.4); MONOCYTE # 0.5 10^3/ul (0.3-0.9); MONOCYTES % 7.6 % (0.0-11.0); NEUTROPHIL # 4.7 10^3/ul (1.6-7.5); NEUTROPHILS % 71.1 % (39.0-77.0); PLATELET COUNT 318 10^3/UL (140-415); RED BLOOD COUNT 4.04 10^6/ul (4.70-6.10)
[2017-11-19] MEDS: TESTOSTERONE 1% GEL 5 GM PACKET TOP (10:00)
[2017-11-19 10:19] LABS: ANION GAP 16 (8-16); BLOOD UREA NITROGEN 16 mg/dl (7-20); CALCIUM 9.8 mg/dl (8.4-10.2); CARBON DIOXIDE 30 mmol/L (21-31); CHLORIDE 102 mmol/L (97-110); CREATININE 0.69 mg/dl (0.61-1.24); GLUCOSE 84 mg/dl (70-220); POTASSIUM 3.8 mmol/L (3.5-5.1); SODIUM 144 mmol/L (135-144)
[2017-11-19] MEDS: AMITRIPTYLINE 25 MG TAB PO (21:43)
[2017-11-20] MEDS: clonAZEPAM 0.5 MG TAB PO ×3 (01:44→22:25)
[2017-11-20] MEDS: OXYCODONE/ACETAMINOPHEN (10/325) TAB PO ×5 (01:45→22:25)
[2017-11-20] MEDS: PANTOPRAZOLE (EC) 40 MG TAB PO (06:00)
[2017-11-20] MEDS: CHOLECALCIFEROL 2,000 UNIT CAP PO (09:32)
[2017-11-20] MEDS: BACLOFEN 10 MG TAB PO ×3 (09:32→21:13)
[2017-11-20] MEDS: GABAPENTIN 100 MG CAP PO ×2 (09:32→23:54)
[2017-11-20] MEDS: MINERAL OIL 30ML CUP PO ×2 (09:35→23:54)
[2017-11-20] MEDS: TESTOSTERONE 1% GEL 5 GM PACKET TOP (09:37)
[2017-11-20] MEDS: CALCITONIN SALMON 3.7 ML NASAL SPRAY NASAL (09:43)
[2017-11-20 16:22] LABS: ANION GAP 17 (8-16); BLOOD UREA NITROGEN 16 mg/dl (7-20); CALCIUM 9.1 mg/dl (8.4-10.2); CARBON DIOXIDE 27 mmol/L (21-31); CHLORIDE 102 mmol/L (97-110); CREATININE 0.82 mg/dl (0.61-1.24); GLUCOSE 100 mg/dl (70-220); POTASSIUM 4.2 mmol/L (3.5-5.1); SODIUM 142 mmol/L (135-144)
[2017-11-20] MEDS ORDERED: BETAMET NA PHOS/AC(6 MG/ML) 5ML INJ INJ (18:00)
[2017-11-20] MEDS ORDERED: BUPIVACAINE 0.5%/EPI (SDV) 30 ML INJ INJ (18:00)
[2017-11-20] MEDS: AMITRIPTYLINE 25 MG TAB PO (21:13)
[2017-11-21] MEDS: MINERAL OIL 30ML CUP PO ×2 (09:36→21:27)
[2017-11-21] MEDS: HYDROCODONE/APAP (7.5/325) TAB GTB (09:37)
[2017-11-21] MEDS: PANTOPRAZOLE (EC) 40 MG TAB PO (09:37)
[2017-11-21] MEDS: BACLOFEN 10 MG TAB PO ×3 (09:37→21:27)
[2017-11-21] MEDS: GABAPENTIN 100 MG CAP PO ×2 (09:37→21:00)
[2017-11-21] MEDS: clonAZEPAM 0.5 MG TAB PO ×4 (09:37→23:36)
[2017-11-21] MEDS: CHOLECALCIFEROL 2,000 UNIT CAP PO (09:37)
[2017-11-21] MEDS: TESTOSTERONE 1% GEL 5 GM PACKET TOP (09:38)
[2017-11-21] MEDS: CALCITONIN SALMON 3.7 ML NASAL SPRAY NASAL (09:38)
[2017-11-21] MEDS: HYDROmorphONE 2 MG TAB PO (11:35)
[2017-11-21] MEDS: OXYCODONE/ACETAMINOPHEN (10/325) TAB PO ×3 (13:17→23:25)
[2017-11-21] MEDS: AMITRIPTYLINE 25 MG TAB PO (21:27)
[2017-11-22] MEDS: GABAPENTIN 100 MG CAP PO ×3 (01:11→21:36)
[2017-11-22] MEDS: OXYCODONE/ACETAMINOPHEN (10/325) TAB PO ×4 (03:31→23:21)
[2017-11-22] MEDS: clonAZEPAM 0.5 MG TAB PO ×4 (03:32→22:39)
[2017-11-22] MEDS: CALCITONIN SALMON 3.7 ML NASAL SPRAY NASAL (09:00)
[2017-11-22] MEDS: MINERAL OIL 30ML CUP PO ×2 (09:58→21:37)
[2017-11-22] MEDS: PANTOPRAZOLE (EC) 40 MG TAB PO (09:58)
[2017-11-22] MEDS: BACLOFEN 10 MG TAB PO ×3 (09:59→21:36)
[2017-11-22] MEDS: CHOLECALCIFEROL 2,000 UNIT CAP PO (09:59)
[2017-11-22] MEDS: TESTOSTERONE 1% GEL 5 GM PACKET TOP (13:01)
[2017-11-22] MEDS: AMITRIPTYLINE 25 MG TAB PO (21:36)
[2017-11-23] MEDS: OXYCODONE/ACETAMINOPHEN (10/325) TAB PO ×4 (03:53→20:34)
[2017-11-23] MEDS: clonAZEPAM 0.5 MG TAB PO ×4 (03:58→20:33)
[2017-11-23] MEDS: PANTOPRAZOLE (EC) 40 MG TAB PO (06:00)
[2017-11-23] MEDS: CALCITONIN SALMON 3.7 ML NASAL SPRAY NASAL (09:00)
[2017-11-23] MEDS: MINERAL OIL 30ML CUP PO ×2 (10:27→20:33)
[2017-11-23] MEDS: CHOLECALCIFEROL 2,000 UNIT CAP PO (10:28)
[2017-11-23] MEDS: BACLOFEN 10 MG TAB PO ×4 (10:28→20:34)
[2017-11-23] MEDS: GABAPENTIN 100 MG CAP PO ×2 (10:28→22:42)
[2017-11-23] MEDS: TESTOSTERONE 1% GEL 5 GM PACKET TOP ×2 (12:12→13:07)
[2017-11-23] MEDS: AMITRIPTYLINE 25 MG TAB PO (20:34)
[2017-11-24] MEDS: PANTOPRAZOLE (EC) 40 MG TAB PO ×2 (05:36→09:36)
[2017-11-24] MEDS: BACLOFEN 10 MG TAB PO ×3 (08:58→20:29)
[2017-11-24] MEDS: CHOLECALCIFEROL 2,000 UNIT CAP PO (08:58)
[2017-11-24] MEDS: MINERAL OIL 30ML CUP PO ×2 (08:58→20:28)
[2017-11-24] MEDS: CALCITONIN SALMON 3.7 ML NASAL SPRAY NASAL (09:00)
[2017-11-24] MEDS: GABAPENTIN 100 MG CAP PO ×3 (09:00→21:50)
[2017-11-24] MEDS: TESTOSTERONE 1% GEL 5 GM PACKET TOP (09:16)
[2017-11-24] MEDS: clonAZEPAM 0.5 MG TAB PO ×3 (09:22→20:28)
[2017-11-24] MEDS: OXYCODONE/ACETAMINOPHEN (10/325) TAB PO ×3 (09:23→20:29)
[2017-11-24] MEDS: BENZOIN TINCTURE 60 ML BTL TOP (10:00)
[2017-11-24] MEDS ORDERED: HYDROCODONE/APAP (10/325) TAB PO (15:30)
[2017-11-24] MEDS: AMITRIPTYLINE 25 MG TAB PO (20:28)
== END 2017-11-24 22:00 | DRG 329 ==
LOC: MS2 13:24
PROC: 0D1L0Z4 Bypass Transverse Colon to Cutaneous, Open Approach (ICD-10-PCS; principal; 2017-10-30 14:00)
PROC: 0WJP0ZZ Inspection of Gastrointestinal Tract, Open Approach (ICD-10-PCS; 2017-10-30 14:00)
DX: K59.09 Other constipation (principal); E43 Unspecified severe protein-calorie malnutrition; I95.9 Hypotension, unspecified; Z68.1 Body mass index [BMI] 19.9 or less, adult; D64.9 Anemia, unspecified; S46.811A Strain of other muscles, fascia and tendons at shoulder and upper arm level, right arm, initial encounter; E87.6 Hypokalemia; G80.8 Other cerebral palsy; Z90.49 Acquired absence of other specified parts of digestive tract; R07.89 Other chest pain; K08.89 Other specified disorders of teeth and supporting structures; R94.31 Abnormal electrocardiogram [ECG] [EKG]; S46.812A Strain of other muscles, fascia and tendons at shoulder and upper arm level, left arm, initial encounter; X58.XXXA Exposure to other specified factors, initial encounter
CPT/HCPCS: 71010; 73020; 73060-RT; 74000; 74250; 78452; 80048; 80053; 80061; 82962; 83735; 84100; 84134; 84443; 84478; 84484; 85025; 85610; 85730; 87086; 93005; 93017; 93306; 97110; 97163; 97530